=== PATIENT | female | born 1975 | race Caucasian/White ===

== ENCOUNTER 2017-03-26 00:06 | Observation (INO) | payer SELFPAY ==
[~2017-03-26] VITALS: Ht 175.3 cm; Wt 98.0 kg
[2017-03-26] MEDS ORDERED: QUET50TA5 PO (00:26)
[2017-03-26] MEDS ORDERED: METO25TA35 PO (00:27)
[2017-03-26] MEDS ORDERED: LISI-170 PO ×2 (00:27→08:45)
[2017-03-26] MEDS ORDERED: LORazepam 1MG TABLET PO ONE (00:30)
[2017-03-26] MEDS ORDERED: LORazepam 1MG TABLET ONE (00:40)
[2017-03-26 00:54] LABS: ASPARTATE AMINO TRANSFERASE 19 U/L (15-37); BLOOD UREA NITROGEN 5 mg/dL (7-18)
[2017-03-26 01:03] LABS: ACETAMINOPHEN < 2 mcg/mL (10-30)
[2017-03-26 01:20] LABS: DAU SCREEN DISCLAIMER
[2017-03-26] MEDS ORDERED: SUMATRIPTAN 50 MG TABLET PO PRN (07:30)
[2017-03-26] MEDS ORDERED: ACETAMINOPHEN 325 MG TABLET PO PRN (07:30)
[2017-03-26] MEDS ORDERED: POTASSIUM CHLORIDE 20 MEQ TAB.ER.PRT PO ONE (07:30)
[2017-03-26] MEDS ORDERED: ONDANSETRON ODT 4 MG PO PRN (07:30)
[2017-03-26 07:59] VITALS: BP 144/100
[2017-03-26] MEDS: FOLIC ACID 1 MG TABLET PO SCH (08:14)
[2017-03-26] MEDS: QUETIAPINE 100MG TABLET PO SCH (08:14)
[2017-03-26] MEDS: LORazepam 1MG TABLET PO PRN ×4 (08:15→23:32)
[2017-03-26] MEDS ORDERED: QUET200T PO (08:45)
[2017-03-26] MEDS ORDERED: HYDR25TA11 PO (08:45)
[2017-03-26] MEDS ORDERED: QUET300T PO (08:45)
[2017-03-26] MEDS ORDERED: PROP20TA PO (08:45)
[2017-03-26] MEDS: MULTIVITAMIN 1 TABLET PO SCH (09:14)
[2017-03-26] MEDS: THIAMINE 100MG TABLET PO SCH (09:14)
[2017-03-26] MEDS: CYANOCOBALAMIN 1,000 MCG TABLET PO SCH (09:14)
[2017-03-26] MEDS: LISINOPRIL 20 MG TABLET PO SCH (09:14)
[2017-03-26] MEDS: PROPRANOLOL 20 MG TABLET PO SCH ×3 (09:14→20:15)
[2017-03-26 19:19] VITALS: BP 110/76
[2017-03-26] MEDS ORDERED: QUETIAPINE 100MG TABLET PO SCH (21:00)
[2017-03-27] MEDS: FOLIC ACID 1 MG TABLET PO SCH (05:16)
[2017-03-27 07:47] VITALS: BP 141/90
[2017-03-27] MEDS: LORazepam 1MG TABLET PO PRN (08:42)
[2017-03-27] MEDS: CYANOCOBALAMIN 1,000 MCG TABLET PO SCH (08:43)
[2017-03-27] MEDS: QUETIAPINE 100MG TABLET PO SCH (08:43)
[2017-03-27] MEDS: LISINOPRIL 20 MG TABLET PO SCH (08:43)
[2017-03-27] MEDS: PROPRANOLOL 20 MG TABLET PO SCH (08:43)
[2017-03-27] MEDS: MULTIVITAMIN 1 TABLET PO SCH (08:44)
[2017-03-27] MEDS: THIAMINE 100MG TABLET PO SCH (08:44)
[2017-03-27] MEDS ORDERED: PROP20TA PO (11:11)
[2017-03-27] MEDS ORDERED: QUET200T PO (11:11)
[2017-03-27] MEDS ORDERED: LISI-170 PO (11:11)
[2017-03-27] MEDS ORDERED: QUET300T PO (11:11)
[2017-03-27] MEDS ORDERED: HYDR25TA11 PO (11:11)
== END 2017-03-27 12:47 | disposition home or self-care (01) ==
LOC: ED 05:33 → EDIP 06:51 → INTOOBSV 06:51 → UNDOADMOB 06:51 → SUATTDRO 06:54 → EDIP 07:13 → 3E 07:58
PROVIDERS: ADMIT Internal Medicine; ATTEND Internal Medicine
DX: G43.909 Migraine, unspecified, not intractable, without status migrainosus (principal); F23 Brief psychotic disorder; F10.129 Alcohol abuse with intoxication, unspecified; I10 Essential (primary) hypertension; F31.9 Bipolar disorder, unspecified; F17.210 Nicotine dependence, cigarettes, uncomplicated; Z80.1 Family history of malignant neoplasm of trachea, bronchus and lung; Z91.19 Patient's noncompliance with other medical treatment and regimen
CPT/HCPCS: 36415; 80053; 80307; 80329; 81001; 84439; 84443; 84703; 85025; 87086; 93005; 99285; G0378; G0480

== ENCOUNTER 2017-05-06 14:53 | Emergency (ER) | payer MEDICAID ==
[~2017-05-06] VITALS: Ht 170.2 cm; Wt 77.0 kg
[~2017-05-06 14:53] MED LIST: HYDR25TA11 PO; LISI-170 PO; METO25TA35 PO; PROP20TA PO; QUET200T PO; QUET300T PO; QUET50TA5 PO
[2017-05-06 15:56] LABS: BLOOD UREA NITROGEN 5 mg/dL (7-18)
[2017-05-06] MEDS ORDERED: SODIUM CHLORIDE 0.9% 1,000ML IVBOLUS ONE (16:00)
[2017-05-06] MEDS ORDERED: POTASSIUM CHLORIDE 20 MEQ TAB.ER.PRT ONE (17:12)
[2017-05-06] MEDS ORDERED: LORazepam 1MG TABLET PO ONE (17:30)
[2017-05-06] MEDS ORDERED: POTASSIUM CHLORIDE 20 MEQ TAB.ER.PRT PO ONE (17:30)
[2017-05-06] MEDS ORDERED: LORazepam 1MG TABLET ONE (17:46)
[2017-05-06 18:00] LABS: DAU SCREEN DISCLAIMER
[2017-05-06 19:18] VITALS: BP 140/98
== END 2017-05-06 19:22 | disposition home or self-care (01) ==
LOC: ED 16:51
DX: F41.1 Generalized anxiety disorder (principal); N39.0 Urinary tract infection, site not specified; E87.6 Hypokalemia; F17.200 Nicotine dependence, unspecified, uncomplicated; I10 Essential (primary) hypertension
CPT/HCPCS: 36415; 80048; 80307; 81001; 82040; 83735; 84443; 84703; 85025; 87086; 93005; 96360; 96361; 99285; J7030